=== PATIENT | female | born 1950 | race African-American/Black ===

== ENCOUNTER 2019-04-21 19:16 | Inpatient (IN) | payer MEDICARE, MEDICAID ==
[~2019-04-21] VITALS: Ht 165.1 cm; Wt 97.5 kg
[2019-04-21] MEDS ORDERED: LORAZEPAM 2MG/ML CPJ ONE ×2 (19:22→19:33)
[2019-04-21] MEDS ORDERED: SUCCINYLCHOLINE CHLORIDE 200MG/10ML IV ONE (19:28)
[2019-04-21] MEDS ORDERED: ETOMIDATE 2MG/ML 10ML VIAL IV ONE (19:28)
[2019-04-21] MEDS ORDERED: PROPOFOL 10MG/ML 100ML 100 ML IV SCH (19:30)
[2019-04-21] MEDS ORDERED: LORAZEPAM 2MG/ML CPJ IV ONE ×2 (19:30)
[2019-04-21] MEDS ORDERED: LEVETIRACETAM 1000MG/100ML 100 ML IV ONE (19:30)
[2019-04-21] MEDS ORDERED: SODIUM CHLORIDE 0.9% 1,000 ML IV ONE (19:45)
[2019-04-21] MEDS ORDERED: MIDAZOLAM HCL 50 MG in DEXTROSE 5% WATER 40 ML IV ONE ×4 (20:15)
[2019-04-21 21:11] LABS: BG BASE EXCESS -4.8 mmol/L (-2.0-2.0); BG CARBOXYHEMOGLOBIN 0.9 % (0.5-1.5); BG DEOXYHEMOGLOBIN 0.6 % (0.0-5.0); BG FRACTION INSPIRED OXYGEN 100; BG HCO3 ACT 19.3 mmol/L (22.0-26.0); BG METHEMOGLOBIN 0.4 % (0.0-1.5); BG OXYGEN SATURATION 99.4 % (92.0-98.5); BG OXYHEMOGLOBIN 98.1 % (94.0-97.0); BG PCO2 33.1 mmHg (35.0-45.0); BG PH 7.383 (7.350-7.450); BG PO2 247.8 mmHg (75.0-100.0); BG SAMPLE SITE RIGHT RADIAL; BG TIDAL VOLUME(mL) 500 mL; BG VENT MODE VENT - A/C; BG VENT RATE 16 set
[2019-04-21] MEDS ORDERED: MANNITOL 12.5G (25%) VIAL 50ML IV ONE (21:15)
[2019-04-21] MEDS ORDERED: PHENYTOIN SODIUM 500 MG in SODIUM CHLORIDE 0.9% 50 ML IV ONE (21:15)
[2019-04-21 21:21] LABS: BASOPHILS % 0.1 % (0.0-2.0); HEMATOCRIT. 42.7 % (36.0-48.0); LYMPHOCYTES % 7.1 % (20.0-50.0); MEAN CORPUSCULAR HEMOGLOBIN 30.5 pg (28.0-32.0); MEAN CORPUSCULAR VOLUME 92.7 fL (81.0-99.0); MEAN PLATELET VOLUME 9.3 fl (7.4-10.4); MONOCYTES % 9.7 % (2.0-8.0); NEUTROPHILS % 83.1 % (40.0-76.0); PLATELET 192 x1000/uL (130-400); RED BLOOD CELL COUNT 4.61 mill/uL (4.2-5.4); RED CELL DISTRIBUTION WIDTH 14.4 % (11.6-14.6)
[2019-04-21 21:23] LABS: CLARITY URINE CLOUDY (CLEAR); COLOR URINE DARK YELLOW (YELLOW); KETONES URINE 1+ (NEGATIVE); LEUKOCYTE ESTERASE URINE NEGATIVE (NEGATIVE); NITRITE URINE NEGATIVE (NEGATIVE); OCCULT BLOOD URINE 3+ (NEGATIVE); PH URINE 5.5 (4.5-8.0); PROTEIN URINE 2+ (NEGATIVE); SPECIFIC GRAVITY URINE 1.022 (1.005-1.030)
[2019-04-21 21:29] LABS: CHLORIDE 116 mEq/L (98-107)
[2019-04-21] MEDS ORDERED: DEXAMETHASONE 4MG/ML 1ML VIAL IV SCH (21:30)
[2019-04-21 21:34] LABS: ETHANOL BLOOD < 10 mg/dL
[2019-04-21 21:46] LABS: CARBAMAZEPINE < 0.5 ug/mL (4-12); INR 1.2; PARTIAL THROMBOPLASTIN TIME 25.4 sec (23.4-31.0); VALPROIC ACID < 3.0 ug/mL (50-100)
[2019-04-21 21:48] LABS: *AMPHETAMINES SCREEN URINE NEGATIVE (NEGATIVE); *BARBITURATES SCREEN URINE NEGATIVE (NEGATIVE); *BENZODIAZEPINES SCREEN URINE PRESUMTIVE POSITIVE (NEGATIVE); *COCAINE SCREEN URINE NEGATIVE (NEGATIVE); METHADONE URINE SCREEN NEGATIVE (NEGATIVE)
[2019-04-21 21:49] LABS: CANNABINOID URINE SCREEN PRESUMTIVE POSITIVE (NEGATIVE); OPIATES URINE SCREEN NEGATIVE (NEGATIVE); PHENCYCLIDINE URINE SCREEN NEGATIVE (NEGATIVE)
[2019-04-21] MEDS ORDERED: ASPIRIN 300MG SUPP PR NR (22:00)
[2019-04-21] MEDS ORDERED: HEPARIN 5000 UNITS/ML VIAL IV NR (22:00)
[2019-04-22] VITALS (87 sets, daily range): BP systolic 114–175; BP diastolic 54–98
[2019-04-22] MEDS ORDERED: NICARDIPINE 50 MG in SODIUM CHLORIDE 0.9% 230 ML IV PRN ×2 (01:00→01:30)
[2019-04-22] MEDS: DEXT 5%/LACTATED RINGERS 1,000 ML IV SCH ×2 (01:15→20:53)
[2019-04-22] MEDS: NICARDIPINE 100 MG in SODIUM CHLORIDE 0.9% 60 ML IV PRN ×3 (01:38→18:38)
[2019-04-22] MEDS: DEXAMETHASONE 10 MG/ML VIAL IV SCH ×3 (05:30→18:37)
[2019-04-22] MEDS: MIDAZOLAM HCL 50 MG in DEXTROSE 5% WATER 40 ML IV PRN (08:34)
[2019-04-22] MEDS ORDERED: LEVETIRACETAM 500 MG in SODIUM CHLORIDE 0.9% 100 ML IV SCH (09:00)
[2019-04-22] MEDS ORDERED: PHENYTOIN SODIUM IV SCH (09:00)
[2019-04-22] MEDS ORDERED: SODIUM CHLORIDE 0.9% IV SCH (09:00)
[2019-04-22 09:38] LABS: HEMATOCRIT. 42.1 % (36.0-48.0); HEMOGLOBIN. 14.1 g/dL (12.0-16.0); MEAN CORPUSCULAR HEMOGLOBIN 30.2 pg (28.0-32.0); MEAN CORPUSCULAR VOLUME 90.6 fL (81.0-99.0); MEAN PLATELET VOLUME 9.7 fl (7.4-10.4); PLATELET 208 x1000/uL (130-400); RED BLOOD CELL COUNT 4.65 mill/uL (4.2-5.4); RED CELL DISTRIBUTION WIDTH 14.1 % (11.6-14.6)
[2019-04-22 09:45] LABS: INR 1.1; PROTHROMBIN TIME 11.2 sec (9.6-11.0)
[2019-04-22 09:51] LABS: CHLORIDE 117 mEq/L (98-107)
[2019-04-22] MEDS: PHENYTOIN SODIUM 100MG/2ML VIAL IV SCH ×2 (09:54→20:53)
[2019-04-22] MEDS ORDERED: LORAZEPAM 2MG/ML CPJ IV PRN (10:00)
[2019-04-22 10:02] LABS: CREATINE KINASE MB FRACTION 11.3 ng/mL (0.5-3.6)
[2019-04-22 10:14] LABS: BG CARBOXYHEMOGLOBIN 0.5 % (0.5-1.5); BG DEOXYHEMOGLOBIN 1.7 % (0.0-5.0); BG FRACTION INSPIRED OXYGEN 70; BG HCO3 ACT 24.2 mmol/L (22.0-26.0); BG METHEMOGLOBIN 0.5 % (0.0-1.5); BG OXYGEN SATURATION 98.3 % (92.0-98.5); BG OXYHEMOGLOBIN 97.3 % (94.0-97.0); BG PCO2 34.2 mmHg (35.0-45.0); BG PH 7.467 (7.350-7.450); BG PO2 108.7 mmHg (75.0-100.0); BG SAMPLE SITE RIGHT RADIAL; BG TIDAL VOLUME(mL) 500 mL; BG TOTAL HEMOGLOBIN 15.1 g/dL (12.0-18.0); BG VENT MODE VENT - A/C; BG VENT RATE 16 set
[2019-04-22 11:08] LABS: PLATELET ESTIMATE NORMAL
[2019-04-22] MEDS: IPRATROPIUM/ALBUTEROL 0.5-3(2.5)MG/3ML NEB HHN SCH ×3 (11:55→20:23)
[2019-04-22] MEDS ORDERED: POTASSIUM CHLORIDE INJ 40 MEQ in DEXT 5% WATER 250 ML IV ONE (12:00)
[2019-04-22 12:18] LABS: CLARITY URINE CLEAR (CLEAR); COLOR URINE YELLOW (YELLOW); KETONES URINE 1+ (NEGATIVE); LEUKOCYTE ESTERASE URINE NEGATIVE (NEGATIVE); NITRITE URINE NEGATIVE (NEGATIVE); OCCULT BLOOD URINE 2+ (NEGATIVE); PH URINE 6.5 (4.5-8.0); PROTEIN URINE TRACE (NEGATIVE); SPECIFIC GRAVITY URINE 1.024 (1.005-1.030); UROBILINOGEN URINE 0.2 E.U./dL (0.2-1.0)
[2019-04-22] MEDS: CEFEPIME 1,000 MG in DEXTROSE 5% WATER 50 ML IV SCH (12:54)
[2019-04-22] MEDS: METRONIDAZOLE 500 MG PREMIX 100 ML IV SCH ×2 (12:55→20:53)
[2019-04-22 19:22] LABS: HEPATITIS B SURFACE ANTIGEN NEGATIVE
[2019-04-22 19:52] LABS: HEPATITIS A AB IGM NEGATIVE (NEGATIVE)
[2019-04-22] MEDS: LEVETIRACETAM 500MG PREMIX 100 ML IV SCH (22:17)
[2019-04-23] VITALS (94 sets, daily range): BP systolic 119–185; BP diastolic 49–112
[2019-04-23] MEDS: NICARDIPINE 100 MG in SODIUM CHLORIDE 0.9% 60 ML IV PRN ×3 (00:11→17:17)
[2019-04-23] MEDS: DEXAMETHASONE 10 MG/ML VIAL IV SCH ×4 (00:11→18:38)
[2019-04-23] MEDS: MIDAZOLAM HCL 50 MG in DEXTROSE 5% WATER 40 ML IV PRN ×3 (00:11→17:00)
[2019-04-23] MEDS: CEFEPIME 1,000 MG in DEXTROSE 5% WATER 50 ML IV SCH ×2 (00:11→12:46)
[2019-04-23] MEDS: IPRATROPIUM/ALBUTEROL 0.5-3(2.5)MG/3ML NEB HHN SCH ×6 (00:21→21:20)
[2019-04-23] MEDS: HYDRALAZINE 20MG/ML VIAL IV PRN (02:31)
[2019-04-23] MEDS: METRONIDAZOLE 500 MG PREMIX 100 ML IV SCH ×3 (04:18→20:45)
[2019-04-23 05:40] LABS: CHLORIDE 118 mEq/L (98-107)
[2019-04-23 05:41] LABS: INR 1.1; PROTHROMBIN TIME 11.3 sec (9.6-11.0)
[2019-04-23 06:06] LABS: HEMATOCRIT. 41.9 % (36.0-48.0); HEMOGLOBIN. 13.9 g/dL (12.0-16.0); MEAN CORPUSCULAR HEMOGLOBIN 30.2 pg (28.0-32.0); MEAN CORPUSCULAR VOLUME 90.7 fL (81.0-99.0); PLATELET 210 x1000/uL (130-400); RED BLOOD CELL COUNT 4.62 mill/uL (4.2-5.4)
[2019-04-23 07:17] LABS: BG CARBOXYHEMOGLOBIN 0.4 % (0.5-1.5); BG DEOXYHEMOGLOBIN 1.9 % (0.0-5.0); BG FRACTION INSPIRED OXYGEN 35; BG HCO3 ACT 22.6 mmol/L (22.0-26.0); BG METHEMOGLOBIN 0.2 % (0.0-1.5); BG OXYGEN SATURATION 98.1 % (92.0-98.5); BG OXYHEMOGLOBIN 97.5 % (94.0-97.0); BG PCO2 31.4 mmHg (35.0-45.0); BG PH 7.475 (7.350-7.450); BG PO2 106.6 mmHg (75.0-100.0); BG SAMPLE SITE RIGHT RADIAL; BG TIDAL VOLUME(mL) 500 mL; BG TOTAL HEMOGLOBIN 14.7 g/dL (12.0-18.0); BG VENT MODE VENT - A/C; BG VENT RATE 12 set
[2019-04-23] MEDS: PHENYTOIN SODIUM 100MG/2ML VIAL IV SCH ×2 (08:03→20:45)
[2019-04-23] MEDS: LEVETIRACETAM 500MG PREMIX 100 ML IV SCH ×2 (08:03→20:45)
[2019-04-23 08:11] LABS: PLATELET ESTIMATE NORMAL
[2019-04-23] MEDS ORDERED: DEXTROSE 50% WATER 50ML SYRINGE IV PRN (12:30)
[2019-04-23] MEDS: INSULIN LISPRO 100 UNITS/ML SUBCUT SCH ×2 (13:52→18:00)
[2019-04-23] MEDS: DEXT 5%/LACTATED RINGERS 1,000 ML IV SCH (17:27)
[2019-04-23] MEDS: BLOOD SUGAR DIAGNOSTIC STRIP TEST SCH (18:38)
[2019-04-24] VITALS (85 sets, daily range): BP systolic 61–163; BP diastolic 41–120
[2019-04-24] MEDS: DEXAMETHASONE 10 MG/ML VIAL IV SCH ×2 (00:04→05:28)
[2019-04-24] MEDS: CEFEPIME 1,000 MG in DEXTROSE 5% WATER 50 ML IV SCH ×3 (00:04→23:59)
[2019-04-24] MEDS: BLOOD SUGAR DIAGNOSTIC STRIP TEST SCH ×5 (00:04→23:59)
[2019-04-24] MEDS: MIDAZOLAM HCL 50 MG in DEXTROSE 5% WATER 40 ML IV PRN (00:04)
[2019-04-24 00:23] LABS: CREATINE KINASE MB FRACTION 2.3 ng/mL (0.5-3.6)
[2019-04-24] MEDS: IPRATROPIUM/ALBUTEROL 0.5-3(2.5)MG/3ML NEB HHN SCH ×6 (00:35→20:31)
[2019-04-24] MEDS: NICARDIPINE 100 MG in SODIUM CHLORIDE 0.9% 60 ML IV PRN ×2 (01:07→11:28)
[2019-04-24] MEDS: METRONIDAZOLE 500 MG PREMIX 100 ML IV SCH ×3 (03:06→19:44)
[2019-04-24 04:58] LABS: HEMATOCRIT. 43.1 % (36.0-48.0); HEMOGLOBIN. 13.9 g/dL (12.0-16.0); MEAN CORPUSCULAR HEMOGLOBIN 29.8 pg (28.0-32.0); MEAN CORPUSCULAR VOLUME 92.2 fL (81.0-99.0); MEAN PLATELET VOLUME 9.8 fl (7.4-10.4); PLATELET 215 x1000/uL (130-400); RED BLOOD CELL COUNT 4.67 mill/uL (4.2-5.4); RED CELL DISTRIBUTION WIDTH 14.3 % (11.6-14.6)
[2019-04-24 04:59] LABS: CHLORIDE 121 mEq/L (98-107)
[2019-04-24] MEDS: HYDRALAZINE 20MG/ML VIAL IV PRN (05:29)
[2019-04-24] MEDS: INSULIN LISPRO 100 UNITS/ML SUBCUT SCH ×4 (05:30→17:23)
[2019-04-24 06:06] LABS: PLATELET ESTIMATE NORMAL
[2019-04-24] MEDS ORDERED: BACITRACIN 50,000 UNITS/VIAL ONE (06:59)
[2019-04-24] MEDS ORDERED: THROMBIN (BOVINE) 5000 UNITS/VIAL TOP ONE ×3 (06:59→09:15)
[2019-04-24] MEDS ORDERED: BACITRACIN 15GM TUBE TOP ONE (06:59)
[2019-04-24] MEDS ORDERED: FENTANYL CITRATE/PF 50MCG/ML 2ML VIAL ONE (07:04)
[2019-04-24] MEDS ORDERED: PROPOFOL 200MG/20ML VIAL IV ONE (07:04)
[2019-04-24] MEDS ORDERED: MIDAZOLAM HCL 2 MG/2 ML VIAL ONE (07:04)
[2019-04-24] MEDS ORDERED: LABETALOL HCL 5MG/ML VIAL 20ML IV ONE (07:05)
[2019-04-24] MEDS ORDERED: SUCCINYLCHOLINE CHLORIDE 200MG/10ML IV ONE (07:05)
[2019-04-24] MEDS ORDERED: EPHEDRINE SULFATE 50MG/ML VIAL ONE (07:05)
[2019-04-24] MEDS ORDERED: HYDRALAZINE 20MG/ML VIAL ONE (07:05)
[2019-04-24] MEDS ORDERED: PHENYLEPHRINE HCL 10 MG/ML 1ML (IV VIAL) IV ONE (07:08)
[2019-04-24] MEDS ORDERED: ROCURONIUM BROMIDE 10MG/ML VIAL 5ML IV ONE ×3 (07:13→09:25)
[2019-04-24] MEDS ORDERED: LIDOCAINE HCL/EPINEPHRINE 1%-EPI 1:100,000 20 ML VIAL ONE (07:22)
[2019-04-24] MEDS ORDERED: MANNITOL 20% 500 ML IV ONE (07:22)
[2019-04-24] MEDS ORDERED: LIDOCAINE HCL/PF 1% 10 MG/ML 5ML VIAL ONE (07:28)
[2019-04-24 07:37] LABS: BG BASE EXCESS 1.4 mmol/L (-2.0-2.0); BG CARBOXYHEMOGLOBIN 0.6 % (0.5-1.5); BG DEOXYHEMOGLOBIN 1.4 % (0.0-5.0); BG HCO3 ACT 24.8 mmol/L (22.0-26.0); BG METHEMOGLOBIN 0.4 % (0.0-1.5); BG OXYGEN SATURATION 98.6 % (92.0-98.5); BG OXYHEMOGLOBIN 97.6 % (94.0-97.0); BG PCO2 35.4 mmHg (35.0-45.0); BG PH 7.463 (7.350-7.450); BG PO2 127.2 mmHg (75.0-100.0); BG SAMPLE SITE RIGHT BRACHIAL; BG TIDAL VOLUME(mL) 500 mL; BG TOTAL HEMOGLOBIN 14.5 g/dL (12.0-18.0); BG VENT MODE VENT - A/C; BG VENT RATE 12 set
[2019-04-24] MEDS ORDERED: CEFAZOLIN SODIUM 1000MG/VIAL ONE (08:29)
[2019-04-24] MEDS ORDERED: SODIUM CHLORIDE 0.9% 10ML VIAL ONE (08:29)
[2019-04-24] MEDS: LEVETIRACETAM 500MG PREMIX 100 ML IV SCH ×2 (10:00→20:59)
[2019-04-24] MEDS: PHENYTOIN SODIUM 100MG/2ML VIAL IV SCH ×2 (10:51→20:59)
[2019-04-24] MEDS: DEXAMETHASONE 4MG/ML 1ML VIAL IV SCH ×3 (11:28→23:59)
[2019-04-24] MEDS ORDERED: CEFAZOLIN SODIUM 1000MG/VIAL IV SCH (14:00)
[2019-04-24] MEDS: CEFAZOLIN 1000MG PREMIX 50 ML IV SCH ×2 (14:30→22:07)
[2019-04-24] MEDS: DEXT 5%/LACTATED RINGERS 1,000 ML IV SCH (14:30)
[2019-04-25] VITALS (95 sets, daily range): BP systolic 60–150; BP diastolic 47–102
[2019-04-25] MEDS: IPRATROPIUM/ALBUTEROL 0.5-3(2.5)MG/3ML NEB HHN SCH ×6 (00:03→20:37)
[2019-04-25] MEDS: INSULIN LISPRO 100 UNITS/ML SUBCUT SCH ×5 (00:11→23:10)
[2019-04-25] MEDS: MORPHINE SULFATE 4 MG/ML CPJ (NOT FOR IM USE) IV PRN ×4 (02:06→17:18)
[2019-04-25] MEDS: NICARDIPINE 100 MG in SODIUM CHLORIDE 0.9% 60 ML IV PRN ×3 (02:43→18:35)
[2019-04-25] MEDS: METRONIDAZOLE 500 MG PREMIX 100 ML IV SCH ×3 (03:47→19:47)
[2019-04-25 05:49] LABS: CHLORIDE 128 mEq/L (98-107)
[2019-04-25 05:59] LABS: MEAN CORPUSCULAR VOLUME 92.5 fL (81.0-99.0); MEAN PLATELET VOLUME 10.1 fl (7.4-10.4); PLATELET 180 x1000/uL (130-400); RED CELL DISTRIBUTION WIDTH 14.8 % (11.6-14.6)
[2019-04-25] MEDS: BLOOD SUGAR DIAGNOSTIC STRIP TEST SCH ×4 (06:11→23:10)
[2019-04-25] MEDS: DEXAMETHASONE 4MG/ML 1ML VIAL IV SCH ×2 (06:11→21:03)
[2019-04-25] MEDS ORDERED: LIDOCAINE HCL 1% 20ML VIAL (Pyxis) INJ ONE (07:21)
[2019-04-25] MEDS ORDERED: DEXT 5%/0.45% NACL 1000ML 1,000 ML IV SCH ×2 (08:15→16:45)
[2019-04-25 09:20] LABS: PLATELET ESTIMATE NORMAL
[2019-04-25] MEDS: PHENYTOIN SODIUM 100MG/2ML VIAL IV SCH ×2 (09:23→21:02)
[2019-04-25] MEDS: LEVETIRACETAM 500MG PREMIX 100 ML IV SCH ×2 (09:24→21:13)
[2019-04-25] MEDS: MIDAZOLAM HCL 50 MG in DEXTROSE 5% WATER 40 ML IV PRN ×3 (09:24→21:01)
[2019-04-25 09:31] LABS: BG BASE EXCESS -0.3 mmol/L (-2.0-2.0); BG CARBOXYHEMOGLOBIN 0.4 % (0.5-1.5); BG DEOXYHEMOGLOBIN 1.3 % (0.0-5.0); BG FRACTION INSPIRED OXYGEN 35; BG HCO3 ACT 23.7 mmol/L (22.0-26.0); BG METHEMOGLOBIN 0.2 % (0.0-1.5); BG OXYGEN SATURATION 98.7 % (92.0-98.5); BG OXYHEMOGLOBIN 98.1 % (94.0-97.0); BG PCO2 37.1 mmHg (35.0-45.0); BG PH 7.424 (7.350-7.450); BG PO2 155.4 mmHg (75.0-100.0); BG SAMPLE SITE A-LINE; BG TIDAL VOLUME(mL) 500 mL; BG VENT MODE VENT - A/C; BG VENT RATE 12 set
[2019-04-25] MEDS: CEFEPIME 1,000 MG in DEXTROSE 5% WATER 50 ML IV SCH (11:21)
[2019-04-25 14:08] LABS: ANTI-NUCLEAR ANTIBODIES DIRECT Negative (Negative)
[2019-04-26] VITALS (95 sets, daily range): BP systolic 8–150; BP diastolic 8–104
[2019-04-26] MEDS: IPRATROPIUM/ALBUTEROL 0.5-3(2.5)MG/3ML NEB HHN SCH ×6 (00:19→20:19)
[2019-04-26] MEDS: NICARDIPINE 100 MG in SODIUM CHLORIDE 0.9% 60 ML IV PRN ×4 (00:33→21:59)
[2019-04-26] MEDS: CEFEPIME 1,000 MG in DEXTROSE 5% WATER 50 ML IV SCH ×3 (00:40→23:46)
[2019-04-26] MEDS: MIDAZOLAM HCL 50 MG in DEXTROSE 5% WATER 40 ML IV PRN ×4 (02:07→22:00)
[2019-04-26] MEDS: METRONIDAZOLE 500 MG PREMIX 100 ML IV SCH ×3 (03:29→19:44)
[2019-04-26] MEDS: BLOOD SUGAR DIAGNOSTIC STRIP TEST SCH ×4 (05:58→23:45)
[2019-04-26] MEDS: INSULIN LISPRO 100 UNITS/ML SUBCUT SCH ×3 (06:00→19:01)
[2019-04-26 06:30] LABS: HEMATOCRIT. 39.9 % (36.0-48.0); MEAN CORPUSCULAR HEMOGLOBIN 30.7 pg (28.0-32.0); MEAN CORPUSCULAR VOLUME 94.4 fL (81.0-99.0); MEAN PLATELET VOLUME 10.2 fl (7.4-10.4); PLATELET 134 x1000/uL (130-400); RED BLOOD CELL COUNT 4.23 mill/uL (4.2-5.4); RED CELL DISTRIBUTION WIDTH 14.8 % (11.6-14.6)
[2019-04-26 06:49] LABS: CHLORIDE 130 mEq/L (98-107)
[2019-04-26 08:25] LABS: PLATELET ESTIMATE NORMAL
[2019-04-26] MEDS: PHENYTOIN SODIUM 100MG/2ML VIAL IV SCH ×2 (09:00→21:05)
[2019-04-26] MEDS: DEXAMETHASONE 4MG/ML 1ML VIAL IV SCH ×2 (09:00→21:05)
[2019-04-26] MEDS: LEVETIRACETAM 500MG PREMIX 100 ML IV SCH ×2 (09:00→21:05)
[2019-04-26] MEDS ORDERED: DOCUSATE SODIUM 250MG CAPSULE PO SCH (09:00)
[2019-04-26] MEDS: PANTOPRAZOLE SODIUM 40 MG/VIAL IV SCH (10:20)
[2019-04-26] MEDS: METOPROLOL TARTRATE 5MG/5ML VIAL IV SCH ×3 (10:22→21:46)
[2019-04-26 10:45] LABS: BG BASE EXCESS -1.6 mmol/L (-2.0-2.0); BG CARBOXYHEMOGLOBIN 0.4 % (0.5-1.5); BG DEOXYHEMOGLOBIN 1.2 % (0.0-5.0); BG FRACTION INSPIRED OXYGEN 35; BG HCO3 ACT 23.1 mmol/L (22.0-26.0); BG METHEMOGLOBIN 0.4 % (0.0-1.5); BG OXYGEN SATURATION 98.8 % (92.0-98.5); BG PCO2 38.9 mmHg (35.0-45.0); BG PH 7.391 (7.350-7.450); BG PO2 158.9 mmHg (75.0-100.0); BG SAMPLE SITE LEFT RADIAL; BG TIDAL VOLUME(mL) 500 mL; BG TOTAL HEMOGLOBIN 12.6 g/dL (12.0-18.0); BG VENT MODE VENT - A/C; BG VENT RATE 12 set
[2019-04-26] MEDS: HYDRALAZINE HCL 50MG TABLET PO SCH ×2 (13:47→21:46)
[2019-04-27] VITALS (85 sets, daily range): BP systolic 112–147; BP diastolic 49–102
[2019-04-27] MEDS: INSULIN LISPRO 100 UNITS/ML SUBCUT SCH ×5 (00:12→23:19)
[2019-04-27] MEDS: IPRATROPIUM/ALBUTEROL 0.5-3(2.5)MG/3ML NEB HHN SCH ×6 (00:21→19:55)
[2019-04-27] MEDS ORDERED: MIDAZOLAM HCL 50 MG in DEXTROSE 5% WATER 40 ML IV PRN (02:45)
[2019-04-27] MEDS: METRONIDAZOLE 500 MG PREMIX 100 ML IV SCH ×3 (04:42→19:25)
[2019-04-27] MEDS: HYDRALAZINE HCL 50MG TABLET PO SCH (05:38)
[2019-04-27] MEDS: METOPROLOL TARTRATE 5MG/5ML VIAL IV SCH ×3 (05:38→21:15)
[2019-04-27] MEDS: BLOOD SUGAR DIAGNOSTIC STRIP TEST SCH ×4 (05:38→23:19)
[2019-04-27 06:17] LABS: HEMATOCRIT. 37.6 % (36.0-48.0); HEMOGLOBIN. 12.1 g/dL (12.0-16.0); MEAN CORPUSCULAR VOLUME 93.4 fL (81.0-99.0); MEAN PLATELET VOLUME 10.2 fl (7.4-10.4); PLATELET 130 x1000/uL (130-400); RED BLOOD CELL COUNT 4.03 mill/uL (4.2-5.4); RED CELL DISTRIBUTION WIDTH 14.6 % (11.6-14.6)
[2019-04-27 06:22] LABS: CHLORIDE 131 mEq/L (98-107)
[2019-04-27 07:44] LABS: BG BASE EXCESS 1.1 mmol/L (-2.0-2.0); BG CARBOXYHEMOGLOBIN 0.2 % (0.5-1.5); BG DEOXYHEMOGLOBIN 2.8 % (0.0-5.0); BG HCO3 ACT 25.7 mmol/L (22.0-26.0); BG METHEMOGLOBIN 0.3 % (0.0-1.5); BG OXYGEN SATURATION 97.2 % (92.0-98.5); BG OXYHEMOGLOBIN 96.7 % (94.0-97.0); BG PCO2 40.8 mmHg (35.0-45.0); BG PH 7.417 (7.350-7.450); BG PO2 98.7 mmHg (75.0-100.0); BG SAMPLE SITE RIGHT RADIAL; BG TIDAL VOLUME(mL) 500 mL; BG TOTAL HEMOGLOBIN 12.4 g/dL (12.0-18.0); BG VENT MODE VENT - A/C; BG VENT RATE 12 set
[2019-04-27] MEDS ORDERED: CLONIDINE 0.1MG TABLET PO PRN (09:00)
[2019-04-27] MEDS: DEXAMETHASONE 4MG/ML 1ML VIAL IV SCH ×2 (09:37→20:01)
[2019-04-27] MEDS: PHENYTOIN SODIUM 100MG/2ML VIAL IV SCH ×2 (09:37→20:01)
[2019-04-27] MEDS: DOCUSATE SODIUM SUGAR FREE 100MG/10ML UDC NG SCH (09:37)
[2019-04-27] MEDS: LEVETIRACETAM 500MG PREMIX 100 ML IV SCH ×2 (09:37→20:01)
[2019-04-27] MEDS: LOSARTAN POTASSIUM 50 MG TABLET PO SCH (09:38)
[2019-04-27] MEDS: PANTOPRAZOLE SODIUM 40 MG/VIAL IV SCH (09:55)
[2019-04-27 10:38] LABS: PLATELET ESTIMATE NORMAL
[2019-04-27] MEDS: CEFEPIME 1,000 MG in DEXTROSE 5% WATER 50 ML IV SCH ×2 (12:14→23:19)
[2019-04-27] MEDS: SODIUM CHLORIDE 0.45% 1,000 ML IV SCH (12:14)
[2019-04-27] MEDS: AMLODIPINE 2.5MG TABLET PO SCH ×2 (12:14→18:42)
[2019-04-27] MEDS: NICARDIPINE 100 MG in SODIUM CHLORIDE 0.9% 60 ML IV PRN (12:15)
[2019-04-27] MEDS: HYDRALAZINE HCL 100MG TABLET PO SCH ×2 (14:46→21:16)
[2019-04-28] VITALS (95 sets, daily range): BP systolic 107–158; BP diastolic 42–78
[2019-04-28] MEDS: IPRATROPIUM/ALBUTEROL 0.5-3(2.5)MG/3ML NEB HHN SCH ×6 (00:32→21:00)
[2019-04-28] MEDS: METRONIDAZOLE 500 MG PREMIX 100 ML IV SCH ×3 (03:02→19:56)
[2019-04-28 05:54] LABS: CHLORIDE 130 mEq/L (98-107)
[2019-04-28 05:55] LABS: HEMOGLOBIN. 11.2 g/dL (12.0-16.0); MEAN CORPUSCULAR VOLUME 93.6 fL (81.0-99.0); MEAN PLATELET VOLUME 10.4 fl (7.4-10.4); PLATELET 117 x1000/uL (130-400); RED BLOOD CELL COUNT 3.75 mill/uL (4.2-5.4); RED CELL DISTRIBUTION WIDTH 14.7 % (11.6-14.6)
[2019-04-28] MEDS: BLOOD SUGAR DIAGNOSTIC STRIP TEST SCH ×3 (06:01→17:28)
[2019-04-28] MEDS: METOPROLOL TARTRATE 5MG/5ML VIAL IV SCH (06:02)
[2019-04-28] MEDS: HYDRALAZINE HCL 100MG TABLET PO SCH ×3 (06:02→21:58)
[2019-04-28] MEDS: INSULIN LISPRO 100 UNITS/ML SUBCUT SCH ×3 (06:03→17:33)
[2019-04-28] MEDS: SODIUM CHLORIDE 0.45% 1,000 ML IV SCH (08:00)
[2019-04-28] MEDS: PANTOPRAZOLE SODIUM 40 MG/VIAL IV SCH (09:19)
[2019-04-28] MEDS: PHENYTOIN SODIUM 100MG/2ML VIAL IV SCH ×2 (09:19→20:44)
[2019-04-28] MEDS: LEVETIRACETAM 500MG PREMIX 100 ML IV SCH ×2 (09:19→20:44)
[2019-04-28] MEDS: AMLODIPINE 2.5MG TABLET PO SCH (09:19)
[2019-04-28] MEDS: LOSARTAN POTASSIUM 50 MG TABLET PO SCH (09:19)
[2019-04-28] MEDS: DOCUSATE SODIUM SUGAR FREE 100MG/10ML UDC NG SCH (09:20)
[2019-04-28] MEDS: DEXAMETHASONE 4MG/ML 1ML VIAL IV SCH ×2 (09:20→20:44)
[2019-04-28] MEDS ORDERED: LACTULOSE 20G/30ML UDC PO SCH (10:45)
[2019-04-28] MEDS ORDERED: LACTULOSE 20G/30ML UDC PO PRN (10:45)
[2019-04-28 11:11] LABS: NUCLEATED RED BLOOD CELLS 2 /100 WBC; PLATELET ESTIMATE DECREASED
[2019-04-28] MEDS: METOPROLOL TARTRATE 50MG TABLET PO SCH ×2 (11:34→20:44)
[2019-04-28] MEDS: CEFEPIME 1,000 MG in DEXTROSE 5% WATER 50 ML IV SCH (11:36)
[2019-04-28] MEDS: AMLODIPINE 5MG TABLET PO SCH ×2 (14:21→21:58)
[2019-04-28 14:23] LABS: BG BASE EXCESS 0.4 mmol/L (-2.0-2.0); BG CARBOXYHEMOGLOBIN 0.3 % (0.5-1.5); BG DEOXYHEMOGLOBIN 1.4 % (0.0-5.0); BG FRACTION INSPIRED OXYGEN 35; BG HCO3 ACT 25.3 mmol/L (22.0-26.0); BG METHEMOGLOBIN 0.3 % (0.0-1.5); BG OXYGEN SATURATION 98.6 % (92.0-98.5); BG PCO2 41.7 mmHg (35.0-45.0); BG PH 7.401 (7.350-7.450); BG PO2 154.2 mmHg (75.0-100.0); BG PRESSURE SUPPORT 10; BG SAMPLE SITE RIGHT RADIAL; BG TOTAL HEMOGLOBIN 11.1 g/dL (12.0-18.0); BG VENT MODE VENT - CPAP
[2019-04-28] MEDS: CLONIDINE 0.1MG TABLET PO SCH ×2 (15:36→21:58)
[2019-04-28] MEDS ORDERED: AMLODIPINE 5MG TABLET PO SCH (21:00)
[2019-04-29] VITALS (98 sets, daily range): BP systolic 103–145; BP diastolic 51–85
[2019-04-29] MEDS: BLOOD SUGAR DIAGNOSTIC STRIP TEST SCH ×4 (00:22→17:37)
[2019-04-29] MEDS: CEFEPIME 1,000 MG in DEXTROSE 5% WATER 50 ML IV SCH ×2 (00:23→11:13)
[2019-04-29] MEDS: IPRATROPIUM/ALBUTEROL 0.5-3(2.5)MG/3ML NEB HHN SCH ×6 (00:40→20:57)
[2019-04-29] MEDS: METRONIDAZOLE 500 MG PREMIX 100 ML IV SCH ×3 (04:05→20:31)
[2019-04-29] MEDS: SODIUM CHLORIDE 0.45% 1,000 ML IV SCH (04:05)
[2019-04-29] MEDS: AMLODIPINE 5MG TABLET PO SCH ×3 (05:31→23:10)
[2019-04-29] MEDS: CLONIDINE 0.1MG TABLET PO SCH ×3 (05:32→21:04)
[2019-04-29] MEDS: HYDRALAZINE HCL 100MG TABLET PO SCH ×3 (05:32→21:04)
[2019-04-29] MEDS: INSULIN LISPRO 100 UNITS/ML SUBCUT SCH ×4 (05:32→17:47)
[2019-04-29 05:36] LABS: HEMATOCRIT. 34.1 % (36.0-48.0); MEAN CORPUSCULAR HEMOGLOBIN 30.6 pg (28.0-32.0); MEAN CORPUSCULAR VOLUME 94.7 fL (81.0-99.0); MEAN PLATELET VOLUME 10.5 fl (7.4-10.4); PLATELET 104 x1000/uL (130-400); RED CELL DISTRIBUTION WIDTH 14.6 % (11.6-14.6)
[2019-04-29 05:45] LABS: CHLORIDE 127 mEq/L (98-107)
[2019-04-29] MEDS: METOPROLOL TARTRATE 50MG TABLET PO SCH ×2 (08:31→20:32)
[2019-04-29] MEDS: PHENYTOIN SODIUM 100MG/2ML VIAL IV SCH ×2 (08:31→20:32)
[2019-04-29] MEDS: LOSARTAN POTASSIUM 100 MG TABLET PO SCH (08:31)
[2019-04-29] MEDS: DOCUSATE SODIUM SUGAR FREE 100MG/10ML UDC NG SCH (08:31)
[2019-04-29] MEDS: PANTOPRAZOLE SODIUM 40 MG/VIAL IV SCH (08:31)
[2019-04-29] MEDS: DEXAMETHASONE 4MG/ML 1ML VIAL IV SCH ×2 (08:31→20:32)
[2019-04-29] MEDS: LEVETIRACETAM 500MG PREMIX 100 ML IV SCH ×2 (08:33→21:56)
[2019-04-29 11:31] LABS: NUCLEATED RED BLOOD CELLS 1 /100 WBC; PLATELET ESTIMATE DECREASED
[2019-04-30] VITALS (58 sets, daily range): BP systolic 109–161; BP diastolic 51–78
[2019-04-30] MEDS: IPRATROPIUM/ALBUTEROL 0.5-3(2.5)MG/3ML NEB HHN SCH ×6 (01:00→20:15)
[2019-04-30] MEDS: BLOOD SUGAR DIAGNOSTIC STRIP TEST SCH ×5 (01:02→23:12)
[2019-04-30] MEDS: INSULIN LISPRO 100 UNITS/ML SUBCUT SCH ×5 (01:05→23:13)
[2019-04-30] MEDS: SODIUM CHLORIDE 0.45% 1,000 ML IV SCH (01:09)
[2019-04-30] MEDS: AMLODIPINE 5MG TABLET PO SCH ×3 (05:22→21:00)
[2019-04-30] MEDS: CLONIDINE 0.1MG TABLET PO SCH ×3 (05:23→21:01)
[2019-04-30] MEDS: HYDRALAZINE HCL 100MG TABLET PO SCH ×3 (05:23→21:00)
[2019-04-30 06:17] LABS: CHLORIDE 120 mEq/L (98-107)
[2019-04-30 06:22] LABS: HEMATOCRIT. 33.6 % (36.0-48.0); MEAN CORPUSCULAR HEMOGLOBIN 30.4 pg (28.0-32.0); MEAN PLATELET VOLUME 11.1 fl (7.4-10.4); PLATELET 103 x1000/uL (130-400); RED BLOOD CELL COUNT 3.61 mill/uL (4.2-5.4); RED CELL DISTRIBUTION WIDTH 14.6 % (11.6-14.6)
[2019-04-30] MEDS: DOCUSATE SODIUM SUGAR FREE 100MG/10ML UDC NG SCH (08:57)
[2019-04-30] MEDS: PHENYTOIN SODIUM 100MG/2ML VIAL IV SCH ×2 (08:57→19:50)
[2019-04-30] MEDS: PANTOPRAZOLE SODIUM 40 MG/VIAL IV SCH (08:57)
[2019-04-30] MEDS: METOPROLOL TARTRATE 50MG TABLET PO SCH ×2 (08:58→19:50)
[2019-04-30] MEDS: LOSARTAN POTASSIUM 100 MG TABLET PO SCH (08:58)
[2019-04-30] MEDS: LEVETIRACETAM 500MG PREMIX 100 ML IV SCH ×2 (08:58→19:50)
[2019-04-30 12:09] LABS: PLATELET ESTIMATE DECREASED
[2019-05-01] VITALS (28 sets, daily range): BP systolic 116–161; BP diastolic 56–76
[2019-05-01] MEDS: IPRATROPIUM/ALBUTEROL 0.5-3(2.5)MG/3ML NEB HHN SCH ×7 (01:51→22:18)
[2019-05-01] MEDS: BLOOD SUGAR DIAGNOSTIC STRIP TEST SCH ×4 (05:35→23:23)
[2019-05-01] MEDS: INSULIN LISPRO 100 UNITS/ML SUBCUT SCH ×4 (05:35→23:29)
[2019-05-01] MEDS: CLONIDINE 0.1MG TABLET PO SCH ×3 (05:35→22:18)
[2019-05-01] MEDS: AMLODIPINE 5MG TABLET PO SCH ×3 (05:35→22:21)
[2019-05-01] MEDS: HYDRALAZINE HCL 100MG TABLET PO SCH ×3 (05:36→22:19)
[2019-05-01 05:48] LABS: CHLORIDE 119 mEq/L (98-107)
[2019-05-01 05:49] LABS: BASOPHILS % 0.1 % (0.0-2.0); HEMATOCRIT. 32.1 % (36.0-48.0); HEMOGLOBIN. 10.4 g/dL (12.0-16.0); LYMPHOCYTES % 11.3 % (20.0-50.0); MEAN CORPUSCULAR HEMOGLOBIN 30.2 pg (28.0-32.0); MEAN CORPUSCULAR VOLUME 93.3 fL (81.0-99.0); MEAN PLATELET VOLUME 10.5 fl (7.4-10.4); MONOCYTES % 10.9 % (2.0-8.0); NEUTROPHILS % 76.7 % (40.0-76.0); PLATELET 97 x1000/uL (130-400); RED BLOOD CELL COUNT 3.44 mill/uL (4.2-5.4); RED CELL DISTRIBUTION WIDTH 14.3 % (11.6-14.6)
[2019-05-01] MEDS: PHENYTOIN SODIUM 100MG/2ML VIAL IV SCH ×2 (09:08→21:03)
[2019-05-01] MEDS: DOCUSATE SODIUM SUGAR FREE 100MG/10ML UDC NG SCH (09:08)
[2019-05-01] MEDS: PANTOPRAZOLE SODIUM 40 MG/VIAL IV SCH (09:08)
[2019-05-01] MEDS: LOSARTAN POTASSIUM 100 MG TABLET PO SCH (09:09)
[2019-05-01] MEDS: LEVETIRACETAM 500MG PREMIX 100 ML IV SCH ×2 (09:09→22:19)
[2019-05-01] MEDS: METOPROLOL TARTRATE 50MG TABLET PO SCH ×2 (09:09→21:03)
[2019-05-01] MEDS ORDERED: DEXT 5% WATER 500 ML IV ONE (09:15)
[2019-05-02] VITALS (9 sets, daily range): BP systolic 134–162; BP diastolic 58–71
[2019-05-02] MEDS: IPRATROPIUM/ALBUTEROL 0.5-3(2.5)MG/3ML NEB HHN SCH ×6 (01:55→20:10)
[2019-05-02] MEDS: CLONIDINE 0.1MG TABLET PO SCH ×3 (05:58→20:32)
[2019-05-02] MEDS: HYDRALAZINE HCL 100MG TABLET PO SCH ×3 (05:59→22:20)
[2019-05-02] MEDS: AMLODIPINE 5MG TABLET PO SCH ×3 (05:59→20:32)
[2019-05-02] MEDS: INSULIN LISPRO 100 UNITS/ML SUBCUT SCH ×4 (06:00→23:18)
[2019-05-02] MEDS: BLOOD SUGAR DIAGNOSTIC STRIP TEST SCH ×4 (06:00→23:15)
[2019-05-02 06:35] LABS: CHLORIDE 112 mEq/L (98-107)
[2019-05-02 06:43] LABS: PHOSPHORUS 2.6 mg/dL (2.5-4.9)
[2019-05-02 06:51] LABS: BASOPHILS % 0.1 % (0.0-2.0); EOSINOPHILS % 2.1 % (0.0-5.0); HEMATOCRIT. 31.1 % (36.0-48.0); HEMOGLOBIN. 10.2 g/dL (12.0-16.0); LYMPHOCYTES % 10.8 % (20.0-50.0); MEAN CORPUSCULAR VOLUME 91.5 fL (81.0-99.0); MEAN PLATELET VOLUME 11.1 fl (7.4-10.4); MONOCYTES % 11.4 % (2.0-8.0); NEUTROPHILS % 75.6 % (40.0-76.0); PLATELET 109 x1000/uL (130-400); RED CELL DISTRIBUTION WIDTH 13.8 % (11.6-14.6)
[2019-05-02] MEDS: LEVETIRACETAM 500MG PREMIX 100 ML IV SCH ×2 (08:44→20:31)
[2019-05-02] MEDS: PHENYTOIN SODIUM 100MG/2ML VIAL IV SCH ×2 (08:44→20:32)
[2019-05-02] MEDS: LOSARTAN POTASSIUM 100 MG TABLET PO SCH (08:58)
[2019-05-02] MEDS: PANTOPRAZOLE SODIUM 40 MG/VIAL IV SCH (08:59)
[2019-05-02] MEDS: DOCUSATE SODIUM SUGAR FREE 100MG/10ML UDC NG SCH (08:59)
[2019-05-02] MEDS: METOPROLOL TARTRATE 50MG TABLET PO SCH ×2 (08:59→22:20)
[2019-05-02] MEDS ORDERED: HYDROCODONE/ACETAMINOPHEN 5/325MG TABLET PO PRN (18:15)
[2019-05-02 19:00] LABS: BG BASE EXCESS 2.9 mmol/L (-2.0-2.0); BG CARBOXYHEMOGLOBIN 0.5 % (0.5-1.5); BG DEOXYHEMOGLOBIN 5.6 % (0.0-5.0); BG FRACTION INSPIRED OXYGEN 21; BG HCO3 ACT 25.6 mmol/L (22.0-26.0); BG METHEMOGLOBIN 0.3 % (0.0-1.5); BG OXYGEN SATURATION 94.4 % (92.0-98.5); BG OXYHEMOGLOBIN 93.6 % (94.0-97.0); BG PCO2 33.1 mmHg (35.0-45.0); BG PH 7.507 (7.350-7.450); BG PO2 68.4 mmHg (75.0-100.0); BG SAMPLE SITE RIGHT RADIAL; BG TOTAL HEMOGLOBIN 11.7 g/dL (12.0-18.0); BG VENT MODE ROOM AIR
[2019-05-02] MEDS ORDERED: MAGNESIUM 1 G PREMIX 100 ML IV NR (20:00)
[2019-05-03] VITALS (12 sets, daily range): BP systolic 118–159; BP diastolic 58–76
[2019-05-03] MEDS: CLONIDINE 0.1MG TABLET PO SCH ×3 (01:19→14:03)
[2019-05-03] MEDS: IPRATROPIUM/ALBUTEROL 0.5-3(2.5)MG/3ML NEB HHN SCH ×5 (04:15→20:40)
[2019-05-03] MEDS: INSULIN LISPRO 100 UNITS/ML SUBCUT SCH ×3 (06:00→18:00)
[2019-05-03] MEDS: HYDRALAZINE HCL 100MG TABLET PO SCH ×3 (06:07→22:01)
[2019-05-03] MEDS: BLOOD SUGAR DIAGNOSTIC STRIP TEST SCH ×3 (06:07→18:04)
[2019-05-03 07:27] LABS: HEMATOCRIT 31.3 % (36.0-48.0); HEMOGLOBIN 10.4 g/dL (12.0-16.0); MEAN CORPUSCULAR HEMOGLOBIN 30.1 pg (28.0-32.0); MEAN CORPUSCULAR VOLUME 90.8 fL (81.0-99.0); PLATELET 145 x1000/uL (130-400); RED BLOOD CELL COUNT 3.45 mill/uL (4.2-5.4); RED CELL DISTRIBUTION WIDTH 13.6 % (11.6-14.6)
[2019-05-03 07:41] LABS: CHLORIDE 109 mEq/L (98-107)
[2019-05-03] MEDS: AMLODIPINE 5MG TABLET PO SCH ×2 (08:18→22:01)
[2019-05-03] MEDS: PANTOPRAZOLE SODIUM 40 MG/VIAL IV SCH (08:18)
[2019-05-03] MEDS: DOCUSATE SODIUM SUGAR FREE 100MG/10ML UDC NG SCH (08:18)
[2019-05-03] MEDS: PHENYTOIN SODIUM 100MG/2ML VIAL IV SCH ×2 (08:19→21:59)
[2019-05-03] MEDS: METOPROLOL TARTRATE 50MG TABLET PO SCH ×2 (08:19→22:00)
[2019-05-03] MEDS: LOSARTAN POTASSIUM 100 MG TABLET PO SCH (08:20)
[2019-05-03] MEDS: LEVETIRACETAM 500MG PREMIX 100 ML IV SCH ×2 (08:20→21:59)
[2019-05-03] MEDS: FLUCONAZOLE 100MG TABLET PEG SCH (18:07)
[2019-05-03] MEDS: CLONIDINE 0.2MG TABLET PO SCH ×2 (22:01→22:03)
[2019-05-04] VITALS (13 sets, daily range): BP systolic 139–173; BP diastolic 53–74
[2019-05-04] MEDS: IPRATROPIUM/ALBUTEROL 0.5-3(2.5)MG/3ML NEB HHN SCH ×6 (00:50→20:30)
[2019-05-04] MEDS: BLOOD SUGAR DIAGNOSTIC STRIP TEST SCH ×4 (01:13→18:00)
[2019-05-04] MEDS: INSULIN LISPRO 100 UNITS/ML SUBCUT SCH ×4 (01:13→18:00)
[2019-05-04] MEDS: HYDRALAZINE HCL 100MG TABLET PO SCH ×3 (06:45→21:55)
[2019-05-04] MEDS: CLONIDINE 0.2MG TABLET PO SCH ×2 (06:45→21:54)
[2019-05-04 09:06] LABS: BASOPHILS % 0.3 % (0.0-2.0); EOSINOPHILS % 1.5 % (0.0-5.0); HEMATOCRIT. 32.8 % (36.0-48.0); HEMOGLOBIN. 10.7 g/dL (12.0-16.0); LYMPHOCYTES % 7.7 % (20.0-50.0); MEAN CORPUSCULAR HEMOGLOBIN 30.1 pg (28.0-32.0); MEAN CORPUSCULAR VOLUME 92.3 fL (81.0-99.0); MEAN PLATELET VOLUME 10.5 fl (7.4-10.4); MONOCYTES % 11.1 % (2.0-8.0); NEUTROPHILS % 79.4 % (40.0-76.0); PLATELET 104 x1000/uL (130-400); RED BLOOD CELL COUNT 3.55 mill/uL (4.2-5.4); RED CELL DISTRIBUTION WIDTH 13.7 % (11.6-14.6)
[2019-05-04 09:24] LABS: CHLORIDE 111 mEq/L (98-107)
[2019-05-04] MEDS: PANTOPRAZOLE SODIUM 40 MG/VIAL IV SCH (10:35)
[2019-05-04] MEDS: PHENYTOIN SODIUM 100MG/2ML VIAL IV SCH ×2 (10:35→21:52)
[2019-05-04] MEDS: DOCUSATE SODIUM SUGAR FREE 100MG/10ML UDC NG SCH (10:36)
[2019-05-04] MEDS: LOSARTAN POTASSIUM 100 MG TABLET PO SCH (10:37)
[2019-05-04] MEDS: FLUCONAZOLE 100MG TABLET PEG SCH (10:37)
[2019-05-04] MEDS: METOPROLOL TARTRATE 50MG TABLET PO SCH ×2 (10:38→21:55)
[2019-05-04] MEDS: AMLODIPINE 5MG TABLET PO SCH (10:38)
[2019-05-04] MEDS: LEVETIRACETAM 500MG PREMIX 100 ML IV SCH ×2 (10:58→21:52)
[2019-05-04] MEDS: DEXTROSE 5% WATER 1,000 ML IV SCH ×2 (11:00→21:52)
[2019-05-04] MEDS: NIFEDIPINE XL 90MG TAB PO SCH (13:59)
[2019-05-05] VITALS (12 sets, daily range): BP systolic 92–161; BP diastolic 44–68
[2019-05-05] MEDS: IPRATROPIUM/ALBUTEROL 0.5-3(2.5)MG/3ML NEB HHN SCH ×6 (01:07→20:00)
[2019-05-05] MEDS: BLOOD SUGAR DIAGNOSTIC STRIP TEST SCH ×4 (01:09→17:53)
[2019-05-05] MEDS: INSULIN LISPRO 100 UNITS/ML SUBCUT SCH ×4 (01:09→17:57)
[2019-05-05] MEDS: HYDRALAZINE HCL 100MG TABLET PO SCH ×3 (06:38→22:01)
[2019-05-05] MEDS: CLONIDINE 0.2MG TABLET PO SCH ×3 (06:38→22:00)
[2019-05-05] MEDS ORDERED: PANTOPRAZOLE 40MG DR TABLET PO SCH (07:30)
[2019-05-05 08:35] LABS: CHLORIDE 110 mEq/L (98-107)
[2019-05-05 08:36] LABS: HEMOGLOBIN 10.2 g/dL (12.0-16.0); MEAN CORPUSCULAR HEMOGLOBIN 30.4 pg (28.0-32.0); MEAN CORPUSCULAR VOLUME 92.5 fL (81.0-99.0); PLATELET 214 x1000/uL (130-400); RED BLOOD CELL COUNT 3.35 mill/uL (4.2-5.4); RED CELL DISTRIBUTION WIDTH 13.9 % (11.6-14.6)
[2019-05-05] MEDS: NIFEDIPINE XL 90MG TAB PO SCH (09:00)
[2019-05-05] MEDS: FLUCONAZOLE 100MG TABLET PEG SCH (09:00)
[2019-05-05] MEDS: LANSOPRAZOLE 30MG DR CAPSULE NG SCH (09:17)
[2019-05-05] MEDS: LOSARTAN POTASSIUM 100 MG TABLET PO SCH (09:18)
[2019-05-05] MEDS: PHENYTOIN SODIUM 100MG/2ML VIAL IV SCH ×2 (09:18→22:00)
[2019-05-05] MEDS: DOCUSATE SODIUM SUGAR FREE 100MG/10ML UDC NG SCH (09:18)
[2019-05-05] MEDS: LEVETIRACETAM 500MG PREMIX 100 ML IV SCH ×2 (09:18→22:00)
[2019-05-05] MEDS: METOPROLOL TARTRATE 50MG TABLET PO SCH ×2 (09:21→22:00)
[2019-05-05] MEDS ORDERED: FLUCONAZOLE/NS(NEO) 2MG/ML IVPB IV SCH (10:45)
[2019-05-05] MEDS: FLUCONAZOLE 100MG/50ML in BAG IV SCH (12:58)
[2019-05-05] MEDS: AMLODIPINE 5MG TABLET GT SCH ×2 (12:58→22:01)
[2019-05-05] MEDS ORDERED: ACETAMINOPHEN 650MG/20.3ML UDC GT PRN (13:30)
[2019-05-05] MEDS: DEXTROSE 5% WATER 1,000 ML IV SCH (22:01)
[2019-05-06] VITALS (12 sets, daily range): BP systolic 109–157; BP diastolic 54–77
[2019-05-06] MEDS: IPRATROPIUM/ALBUTEROL 0.5-3(2.5)MG/3ML NEB HHN SCH ×6 (00:06→21:01)
[2019-05-06] MEDS: INSULIN LISPRO 100 UNITS/ML SUBCUT SCH ×5 (06:00→23:59)
[2019-05-06 06:05] LABS: PROTHROMBIN TIME 10.6 sec (9.6-11.0)
[2019-05-06 06:13] LABS: HEMATOCRIT 28.1 % (36.0-48.0); HEMOGLOBIN 9.8 g/dL (12.0-16.0); MEAN CORPUSCULAR HEMOGLOBIN 31.6 pg (28.0-32.0); MEAN CORPUSCULAR VOLUME 90.7 fL (81.0-99.0); PLATELET 224 x1000/uL (130-400); RED CELL DISTRIBUTION WIDTH 13.5 % (11.6-14.6)
[2019-05-06 06:28] LABS: CHLORIDE 110 mEq/L (98-107)
[2019-05-06] MEDS: LANSOPRAZOLE 30MG DR CAPSULE NG SCH (06:53)
[2019-05-06] MEDS: CLONIDINE 0.2MG TABLET PO SCH ×3 (06:53→22:03)
[2019-05-06] MEDS: HYDRALAZINE HCL 100MG TABLET PO SCH ×3 (06:53→22:03)
[2019-05-06] MEDS: BLOOD SUGAR DIAGNOSTIC STRIP TEST SCH ×5 (06:54→23:59)
[2019-05-06] MEDS: METOPROLOL TARTRATE 50MG TABLET PO SCH ×2 (09:00→22:04)
[2019-05-06] MEDS: AMLODIPINE 5MG TABLET GT SCH ×2 (09:00→22:03)
[2019-05-06] MEDS: DOCUSATE SODIUM SUGAR FREE 100MG/10ML UDC NG SCH (09:00)
[2019-05-06] MEDS: LOSARTAN POTASSIUM 100 MG TABLET PO SCH (09:00)
[2019-05-06] MEDS: LEVETIRACETAM 500MG PREMIX 100 ML IV SCH ×2 (09:27→22:02)
[2019-05-06] MEDS: PHENYTOIN SODIUM 100MG/2ML VIAL IV SCH ×2 (09:27→22:02)
[2019-05-06] MEDS ORDERED: POTASSIUM CHLORIDE INJ 40 MEQ in DEXT 5% WATER 500 ML IV SCH (10:00)
[2019-05-06] MEDS ORDERED: CEFAZOLIN 1000MG PREMIX 50 ML IV SCH (11:00)
[2019-05-06] MEDS ORDERED: CEFAZOLIN SODIUM 1000MG/VIAL IM ONE (11:00)
[2019-05-06] MEDS: FLUCONAZOLE 100MG/50ML in BAG IV SCH (14:07)
[2019-05-06] MEDS: HYDRALAZINE 20MG/ML VIAL IV PRN (14:24)
[2019-05-06] MEDS: DEXTROSE 5% WATER 1,000 ML IV SCH (22:30)
[2019-05-07] VITALS (12 sets, daily range): BP systolic 116–152; BP diastolic 44–71
[2019-05-07] MEDS: IPRATROPIUM/ALBUTEROL 0.5-3(2.5)MG/3ML NEB HHN SCH ×5 (00:39→20:46)
[2019-05-07] MEDS: INSULIN LISPRO 100 UNITS/ML SUBCUT SCH ×3 (06:00→18:00)
[2019-05-07 06:24] LABS: BASOPHILS % 0.6 % (0.0-2.0); EOSINOPHILS % 1.5 % (0.0-5.0); HEMATOCRIT. 28.4 % (36.0-48.0); HEMOGLOBIN. 9.6 g/dL (12.0-16.0); LYMPHOCYTES % 9.5 % (20.0-50.0); MEAN CORPUSCULAR HEMOGLOBIN 31.1 pg (28.0-32.0); MEAN CORPUSCULAR VOLUME 91.9 fL (81.0-99.0); MEAN PLATELET VOLUME 9.2 fl (7.4-10.4); MONOCYTES % 12.4 % (2.0-8.0); PLATELET 239 x1000/uL (130-400); RED BLOOD CELL COUNT 3.09 mill/uL (4.2-5.4); RED CELL DISTRIBUTION WIDTH 13.9 % (11.6-14.6)
[2019-05-07] MEDS: BLOOD SUGAR DIAGNOSTIC STRIP TEST SCH ×3 (06:36→18:23)
[2019-05-07] MEDS: CLONIDINE 0.2MG TABLET PO SCH ×3 (06:37→21:52)
[2019-05-07] MEDS: LANSOPRAZOLE 30MG DR CAPSULE NG SCH (06:37)
[2019-05-07] MEDS: HYDRALAZINE HCL 100MG TABLET PO SCH ×3 (06:37→21:52)
[2019-05-07 07:00] LABS: CHLORIDE 111 mEq/L (98-107)
[2019-05-07 07:07] LABS: PHOSPHORUS 2.6 mg/dL (2.5-4.9)
[2019-05-07] MEDS: ASCORBIC ACID 500 MG TABLET PO SCH (09:46)
[2019-05-07] MEDS: AMLODIPINE 5MG TABLET GT SCH ×2 (09:46→21:53)
[2019-05-07] MEDS: METOPROLOL TARTRATE 50MG TABLET PO SCH ×2 (09:47→21:53)
[2019-05-07] MEDS: DOCUSATE SODIUM SUGAR FREE 100MG/10ML UDC NG SCH (09:47)
[2019-05-07] MEDS: LOSARTAN POTASSIUM 100 MG TABLET PO SCH (09:47)
[2019-05-07] MEDS: LEVETIRACETAM 500MG PREMIX 100 ML IV SCH ×2 (09:48→21:47)
[2019-05-07] MEDS: PHENYTOIN SODIUM 100MG/2ML VIAL IV SCH ×2 (09:48→21:47)
[2019-05-07] MEDS ORDERED: POTASSIUM CHLORIDE 20MEQ/PACKET PO NR (10:45)
[2019-05-07] MEDS ORDERED: FENTANYL CITRATE/PF 50MCG/ML 2ML VIAL ONE (10:47)
[2019-05-07] MEDS ORDERED: MIDAZOLAM HCL 5 MG/5 ML VIAL ONE (10:47)
[2019-05-07] MEDS ORDERED: CEFAZOLIN 1000MG PREMIX 50 ML IV ONE (10:50)
[2019-05-07] MEDS ORDERED: MIDAZOLAM HCL 5 MG/5 ML VIAL IV PRN (10:52)
[2019-05-07] MEDS ORDERED: FENTANYL CITRATE/PF 50MCG/ML 2ML VIAL IV PRN (10:53)
[2019-05-07] MEDS ORDERED: CEFAZOLIN 1000MG PREMIX 50 ML IV SCH (11:00)
[2019-05-07] MEDS: METOCLOPRAMIDE HCL 10MG/2ML VIAL IV SCH ×2 (13:03→18:25)
[2019-05-07] MEDS: FLUCONAZOLE 100MG/50ML in BAG IV SCH (13:04)
[2019-05-07] MEDS: DEXTROSE 5% WATER 1,000 ML IV SCH (18:26)
[2019-05-08] VITALS (11 sets, daily range): BP systolic 104–140; BP diastolic 46–67
[2019-05-08] MEDS: IPRATROPIUM/ALBUTEROL 0.5-3(2.5)MG/3ML NEB HHN SCH ×5 (00:37→16:50)
[2019-05-08] MEDS: METOCLOPRAMIDE HCL 10MG/2ML VIAL IV SCH ×4 (05:05→17:37)
[2019-05-08] MEDS: HYDRALAZINE HCL 100MG TABLET PO SCH ×2 (05:06→13:17)
[2019-05-08] MEDS: CLONIDINE 0.2MG TABLET PO SCH ×2 (05:06→13:16)
[2019-05-08] MEDS: INSULIN LISPRO 100 UNITS/ML SUBCUT SCH ×4 (06:00→17:38)
[2019-05-08] MEDS: BLOOD SUGAR DIAGNOSTIC STRIP TEST SCH ×4 (06:30→17:38)
[2019-05-08 07:33] LABS: BASOPHILS % 0.2 % (0.0-2.0); EOSINOPHILS % 1.1 % (0.0-5.0); HEMATOCRIT. 29.1 % (36.0-48.0); HEMOGLOBIN. 9.9 g/dL (12.0-16.0); LYMPHOCYTES % 10.7 % (20.0-50.0); MEAN CORPUSCULAR HEMOGLOBIN 31.3 pg (28.0-32.0); MEAN CORPUSCULAR VOLUME 92.1 fL (81.0-99.0); MEAN PLATELET VOLUME 8.7 fl (7.4-10.4); MONOCYTES % 9.2 % (2.0-8.0); NEUTROPHILS % 78.8 % (40.0-76.0); PLATELET 225 x1000/uL (130-400); RED BLOOD CELL COUNT 3.16 mill/uL (4.2-5.4)
[2019-05-08] MEDS: DOCUSATE SODIUM SUGAR FREE 100MG/10ML UDC NG SCH (08:06)
[2019-05-08] MEDS: AMLODIPINE 5MG TABLET GT SCH (08:06)
[2019-05-08] MEDS: LEVETIRACETAM 500MG PREMIX 100 ML IV SCH (08:06)
[2019-05-08] MEDS: ASCORBIC ACID 500 MG TABLET PO SCH (08:06)
[2019-05-08] MEDS: PHENYTOIN SODIUM 100MG/2ML VIAL IV SCH (08:06)
[2019-05-08] MEDS: LANSOPRAZOLE 30MG DR CAPSULE NG SCH (08:06)
[2019-05-08] MEDS: METOPROLOL TARTRATE 50MG TABLET PO SCH (08:07)
[2019-05-08] MEDS: LOSARTAN POTASSIUM 100 MG TABLET PO SCH (08:07)
[2019-05-08 08:25] LABS: CHLORIDE 108 mEq/L (98-107)
[2019-05-08] MEDS: FLUCONAZOLE 100MG/50ML in BAG IV SCH (13:19)
== END 2019-05-08 19:10 | DRG 21 ==
LOC: ER 19:16 → MICUSO 22:00 → EDBEDREQSVC 22:02 → EDBEDREQ 22:02 → EDBEDREQTM 22:02 → EDBEDREQ 22:15 → ENRESERV 22:20 → 5EST 05-01 11:19
PROVIDERS: ADMIT Internal Medicine; ATTEND Internal Medicine
PROC: 5A1955Z Respiratory Ventilation, Greater than 96 Consecutive Hours (ICD-10-PCS; 2019-04-21)
PROC: 0BH17EZ Insertion of Endotracheal Airway into Trachea, Via Natural or Artificial Opening (ICD-10-PCS; 2019-04-21)
PROC: 00B10ZZ Excision of Cerebral Meninges, Open Approach (ICD-10-PCS; principal; 2019-04-24)
PROC: 00U207Z Supplement Dura Mater with Autologous Tissue Substitute, Open Approach (ICD-10-PCS; 2019-04-24)
PROC: 02HV33Z Insertion of Infusion Device into Superior Vena Cava, Percutaneous Approach (ICD-10-PCS; 2019-04-25)
PROC: B548ZZA Ultrasonography of Superior Vena Cava, Guidance (ICD-10-PCS; 2019-04-25)
PROC: 0DH63UZ Insertion of Feeding Device into Stomach, Percutaneous Approach (ICD-10-PCS; 2019-05-07)
PROC: 0DB78ZX Excision of Stomach, Pylorus, Via Natural or Artificial Opening Endoscopic, Diagnostic (ICD-10-PCS; 2019-05-07)
DX: D32.0 Benign neoplasm of cerebral meninges (principal); J96.00 Acute respiratory failure, unspecified whether with hypoxia or hypercapnia; I21.4 Non-ST elevation (NSTEMI) myocardial infarction; J69.0 Pneumonitis due to inhalation of food and vomit; G93.6 Cerebral edema; G93.40 Encephalopathy, unspecified; R40.20 Unspecified coma; R13.10 Dysphagia, unspecified; G40.901 Epilepsy, unspecified, not intractable, with status epilepticus; N17.9 Acute kidney failure, unspecified; E44.1 Mild protein-calorie malnutrition; M62.82 Rhabdomyolysis; D18.00 Hemangioma unspecified site; E87.0 Hyperosmolality and hypernatremia; B37.9 Candidiasis, unspecified; D64.9 Anemia, unspecified; D72.829 Elevated white blood cell count, unspecified; E83.42 Hypomagnesemia; R73.9 Hyperglycemia, unspecified; E87.1 Hypo-osmolality and hyponatremia; E87.8 Other disorders of electrolyte and fluid balance, not elsewhere classified; F12.90 Cannabis use, unspecified, uncomplicated; R47.02 Dysphasia; T38.0X5A Adverse effect of glucocorticoids and synthetic analogues, initial encounter; R74.0 Nonspecific elevation of levels of transaminase and lactic acid dehydrogenase [LDH]; F03.90 Unspecified dementia, unspecified severity, without behavioral disturbance, psychotic disturbance, mood disturbance, and anxiety; K29.70 Gastritis, unspecified, without bleeding; N39.0 Urinary tract infection, site not specified; E73.9 Lactose intolerance, unspecified; I11.9 Hypertensive heart disease without heart failure; Y92.89 Other specified places as the place of occurrence of the external cause; Z79.899 Other long term (current) drug therapy; Z68.35 Body mass index [BMI] 35.0-35.9, adult
CPT/HCPCS: 36415; 36600; 70551; 71045; 76705; 76770; 76937; 80048; 80053; 80061; 80156; 80165; 80185; 80305; 80320; 81003; 82140; 82375; 82550; 82553; 82805; 82962; 83036; 83735; 83880; 84100; 84443; 84484; 85025; 85027; 86038; 86160; 86705; 86709; 86803; 86850; 86900; 87070; 87340; 88305; 88307; 88312; 88313; 92610; 93005; 93306; 93970; 93971; 94003; 94640; 96365; 96366; 96375; 96376; 97112; 97162; 97167; 97530; 99291; A6261; C1713; C1725; C9113; J0330; J0360; J0690; J0692; J1100; J1165; J1450; J1644; J1815; J1953; J2060; J2150; J2250; J2270; J2370; J2704; J2765; J3010; J3475; J3480; J3490; J7030; J7040; J7050; J7060; J7070; L3908; A4315; G0480